=== PATIENT | male | born 1940 | race Caucasian/White ===

== ENCOUNTER 2017-02-27 13:06 | Emergency (ER) | payer OTHER, MEDICARE ==
[2017-02-27 13:20] VITALS: TEMP 97.3
--- NOTE | 2017-02-27 13:35 | ED.PDOC ---
History of Present Illness - General Chief Complaint: Neuro Symptoms/Deficits Stated Complaint: Dizziness Time Seen by Provider: 02/27/17 13:35 Source: patient Exam Limitations: no limitations - History of Present Illness Initial Comments: Rell Casey 76 y/o male stated that while shelling pecans on getting up felt dizzy feels like spinning and right got stuck on the chair causing him to fall down on his right knee. Denies head,neck injuries.No blurry vision,no slurred speech,no seizures,no weakness.Denies chronic medical problems.Takes mostly herbal remedies.Presently feels better on arrival at ER.Had same symptoms 2 weeks ago while waxing his grandsons car also got dizzy. Timing/Duration: 1-3 hours Improving Factors: nothing Worsening Factors: nothing Allergies/Adverse Reactions: Allergies NO KNOWN ALLERGY Allergy (Verified 02/27/17 13:19) Home Medications: Ambulatory Orders Lisinopril 10 mg PO ACBK #30 tab 02/27/17 Review of Systems - Review of Systems Constitutional: States: no symptoms reported EENTM: States: no symptoms reported Respiratory: States: no symptoms reported Cardiology: States: no symptoms reported Gastrointestinal/Abdominal: States: no symptoms reported Genitourinary: States: no symptoms reported Musculoskeletal: States: no symptoms reported Skin: States: no symptoms reported Neurological: States: see HPI Past Medical History (General) - Patient Medical History Hx Cancer: Yes - prostate CA Surgical History: other - Prostatectomy,hernia repair - Social History Hx Tobacco Use: Yes - QUIT 30 yrs ago Hx Alcohol Use: No Hx Substance Use: No Hx Physical Abuse: No Hx Emotional Abuse: No Hx Suspected Abuse: No - Activities of Daily Living Patient Lives Alone: No Grooming Ability: Independent Eating (Feeding) Ability: Independent Toileting Ability: Independent Family Medical History - Family History Father Family History: No Known Living Status: Hx Family Hypertension: Yes - dad Hx Family Stroke: Yes - dad Hx Cardiac Disease: Yes - dad Hx Family Cancer: Yes - mom-colon Physical Exam - Physical Exam General Appearance: Alert, Comfortable, No apparent distress Eye Exam: bilateral normal Ears, Nose, Throat: hearing grossly normal, normal ENT inspection, normal pharynx Neck: non-tender, full range of motion, supple, normal inspection Respiratory: chest non-tender, lungs clear, normal breath sounds Cardiovascular/Chest: normal peripheral pulses, regular rate, rhythm, no gallop , no murmur Peripheral Pulses: radial,right: 2+, radial,left: 2+ Gastrointestinal/Abdominal: normal bowel sounds, non tender, soft, no organomegaly, no pulsatile mass Back Exam: normal inspection, no CVA tenderness, no vertebral tenderness Extremity: non-tender, normal inspection, no pedal edema, no calf tenderness Neurologic: no motor/sensory deficits, alert, normal mood/affect, oriented x 3 Skin Exam: normal color, warm/dry Lymphatic: no adenopathy Progress - Progress Progress: 02/27/17 14:23 Last Vital Signs Temp 97.3 F L 02/27/17 13:19 Pulse 82 02/27/17 13:19 Resp 20 02/27/17 13:19 BP 162/96 02/27/17 13:19 Pulse Ox 100 02/27/17 13:19 - Results/Orders Results/Orders: Laboratory Tests 02/27/17 02/27/17 02/27/17 14:00 14:00 14:00 WBC 4.4 L RBC 4.91 Hgb 15.1 Hct 44.2 MCV 90.0 MCH 30.8 MCHC 34.2 RDW 13.6 Plt Count 244 MPV 7.4 Absolute Neuts (auto) 2.90 Absolute Lymphs (auto) 0.90 L Absolute Monos (auto) 0.50 Absolute Eos (auto) 0.10 Absolute Basos (auto) 0.00 Neutrophils % 67.6 Lymphocytes % 19.5 L Monocytes % 10.4 H Eosinophils % 1.5 Basophils % 1.0 PT 10.6 INR 0.940 PTT (SP) 30.7 Sodium 140 Potassium 3.7 Chloride 104 Carbon Dioxide 30 Anion Gap 9.7 L BUN 13 Creatinine 0.77 BUN/Creatinine Ratio 16.9 Random Glucose 81 Serum Osmolality 278.5 Calcium 8.8 Total Bilirubin 0.8 AST 18 ALT 13 Alkaline Phosphatase 64 Troponin I Serum Total Protein 7.1 Albumin 4.1 Globulin 3.0 Albumin/Globulin Ratio 1.4 02/27/17 14:00 WBC RBC Hgb Hct MCV MCH MCHC RDW Plt Count MPV Absolute Neuts (auto) Absolute Lymphs (auto) Absolute Monos (auto) Absolute Eos (auto) Absolute Basos (auto) Neutrophils % Lymphocytes % Monocytes % Eosinophils % Basophils % PT INR PTT (SP) Sodium Potassium Chloride Carbon Dioxide Anion Gap BUN Creatinine BUN/Creatinine Ratio Random Glucose Serum Osmolality Calcium Total Bilirubin AST ALT Alkaline Phosphatase Troponin I < 0.02 Serum Total Protein Albumin Globulin Albumin/Globulin Ratio - EKG/XRAY/CT EKG: Isidro, Sinus Comments: heart rate-51 CT Ordered: Yes - head-w/o:no acute abnormalities Departure - Departure Clinical Impression: Dizziness, nonspecific, Sinus bradycardia Hypertension Qualifiers: Hypertension type: unspecified Qualified Code(s): I10 - Essential (primary) hypertension Time of Disposition: 14:52 Disposition: Discharge to Home or Self Care Departure Forms: ED Discharge - Pt. Copy, Patient Portal Self Enrollment Instructions: DI for Dizziness-Nonvertigo, Combating Dizziness in Older Adults , DI for High Blood Pressure, Treatments for High Blood Pressure: More Than Just Taking a Pill, High Blood Pressure, DI for Bradycardia, Bradycardia Referrals: LIO WALKER MD [Primary Care Provider] - 1-2 Weeks Prescriptions: Lisinopril 10 mg PO ACBK #30 tab Home Medications: Ambulatory Orders Lisinopril 10 mg PO ACBK #30 tab 02/27/17 Additional Instructions: Follow up with primary md 03/02/2017 call for appointment;Baby aspirin one tablet daily;RETURN to ER as needed
[2017-02-27] MEDS ORDERED: TETANUS,DIPHTHERIA,PERTUSSIS 1 EA SYG IM ONE (13:37)
--- NOTE | 2017-02-27 14:09 | CT ---
EXAM DESCRIPTION: Head CLINICAL HISTORY: dizzy/facial droop COMPARISON: None. TECHNIQUE: Non-helical axial scans through the skull and brain, at 5.0 mm intervals, non-contrast. Axial nonhelical 2.5 mm reconstructions. Coronal and 2.0 mm sagittal reconstructions. Total Exam DLP: 773.97 mGy-cm. This exam was performed according to our departmental dose-optimization program which includes automated exposure control, adjustment of the mA and/or kV according to patient size and/or use of iterative reconstruction technique; to reduce radiation dose to as low as reasonably achievable (ALARA). FINDINGS: No hemorrhage, no mass-effect, and no midline shift. Bilateral low-density in the periventricular white matter extending to the subcortical white matter at some levels. Small bilateral basal ganglionic calcifications. Vascular calcifications anterior and posterior; physiologic calcifications in the pineal gland and choroid plexus. No effacement or displacement of the ventricles, CSF spaces, or subdural spaces. No extra axial fluid collection or hemorrhage. Bilateral cortical sulci are slightly prominent. No gross abnormalities of the bony calvarium. Included paranasal sinuses and mastoid air cells are well - aerated. IMPRESSION: 1. No hemorrhage, no mass effect, no midline shift. Bilateral periventricular low-density is most likely related to cerebral microvascular disease. Relatively symmetric. Anterior and posterior circulation vascular calcifications. 2. CT scans are insensitive for detecting small CVAs in the first 24 hours after onset. Evaluation of the brain stem is also limited. If symptoms persist, consider MRI scan of the brain with diffusion imaging. Electronically signed by: Luis Gunter MD 02/27/2017 2:07 PM [employer] TECH[employer]ICIAN
[2017-02-27 15:22] VITALS: BP 138/70; O2SAT 99
== END 2017-02-27 15:00 | disposition home or self-care (01) ==
LOC: ER 13:06
DX: I10 Essential (primary) hypertension (principal); R42 Dizziness and giddiness; R00.1 Bradycardia, unspecified; Z87.891 Personal history of nicotine dependence; Z85.46 Personal history of malignant neoplasm of prostate; Z23 Encounter for immunization

== ENCOUNTER → 2017-03-03 | Outpatient (CLI) | payer OTHER, MEDICARE | END | disposition home or self-care (01) | LOC: GMAH 10:27 | PROVIDERS: ATTEND Family Medicine | DX: C61 Malignant neoplasm of prostate (principal) ==

== ENCOUNTER → 2018-03-17 | Outpatient (CLI) | payer MEDICARE, OTHER | LOC: GMAH 10:47 | PROVIDERS: ATTEND Family Medicine | DX: I10 Essential (primary) hypertension (principal); Z12.5 Encounter for screening for malignant neoplasm of prostate | CPT/HCPCS: 84443; 84550; G0103 ==

== ENCOUNTER → 2020-02-16 | Outpatient (CLI) | payer MEDICARE, OTHER | LOC: GMA MATASK 17:19 | PROVIDERS: ATTEND Family Medicine | DX: Z12.5 Encounter for screening for malignant neoplasm of prostate (principal); I10 Essential (primary) hypertension | CPT/HCPCS: 84443; 84550; G0103 ==